=== PATIENT | male | born 1985 | race African-American/Black ===

== ENCOUNTER 2016-11-24 09:30 | Emergency (ER) | payer OTHER ==
[~2016-11-24] VITALS: Ht 185.4 cm; Wt 140.9 kg
[~2016-11-24 09:30] MED LIST: AMLODIPINE BESY10 MG PO; CLARITIN-D 121 EACH PO; NOHOMEMEDS; PHENERGAN-CODE120 ML PO; PREDNISONE20 MG PO; ROBITUSSIN AC,T10 ML PO; ZITHROMAX Z-PA250 MG PO
[2016-11-24] MEDS ORDERED: AUGMENTIN875 MG PO (11:13)
[2016-11-24] MEDS ORDERED: MEDROL DOSEPAK4 MG PO (11:13)
[2016-11-24] MEDS ORDERED: PROVENTIL HFA6.7 GM IH (11:13)
[2016-11-24] MEDS ORDERED: TESSALON PERLE100 MG PO (11:13)
[2016-11-24 11:19] VITALS: BP 158/99
== END 2016-11-24 11:21 | disposition home or self-care (01) ==
LOC: EME 09:30
DX: J06.9 Acute upper respiratory infection, unspecified (principal); J32.9 Chronic sinusitis, unspecified; I10 Essential (primary) hypertension
CPT/HCPCS: 71020; 94640; 99281; 99284; J7512

== ENCOUNTER 2017-04-26 17:56 | Emergency (ER) | payer OTHER ==
[~2017-04-26] VITALS: Ht 185.4 cm; Wt 137.1 kg
[~2017-04-26 17:56] MED LIST changes: +AUGMENTIN875 MG PO; +MEDROL DOSEPAK4 MG PO; +PROVENTIL HFA6.7 GM IH; +TESSALON PERLE100 MG PO
[2017-04-26 22:09] VITALS: BP 136/91
[2017-04-26] MEDS ORDERED: AUGMENTIN875 MG PO (22:10)
== END 2017-04-26 22:11 | disposition home or self-care (01) ==
LOC: EME 17:56
DX: H53.8 Other visual disturbances (principal); J01.90 Acute sinusitis, unspecified; I10 Essential (primary) hypertension
CPT/HCPCS: 70486; 99281; 99284

== ENCOUNTER 2017-04-30 13:52 | Inpatient (IN) | payer OTHER ==
[~2017-04-30] VITALS: Ht 185.4 cm; Wt 137.3 kg
[2017-04-30 16:02] LABS: HEMATOCRIT 43.6 % (38.0-50.0); MCHC 34.9 G/DL (30.0-36.0); MCV 77.4 FL (86-99); PLATELET COUNT 301 K/uL (156-360); RBC DIS.WIDTH-CV 12.5 % (11.8-14.6); RBC DIS.WIDTH-SD 35.3 % (39-53); RED BLOOD COUNT 5.63 M/uL (4.00-5.50); WHITE BLOOD COUNT 8.2 K/uL (4.1-10.2)
[2017-04-30 16:10] LABS: CHLORIDE 103 mEq/L (99-109); POTASSIUM 4.1 mEq/L (3.7-5.4); SODIUM 139 mEq/L (136-147)
[2017-04-30 16:12] LABS: GLUCOSE 80 mg/dL (70-99)
[2017-04-30 16:13] LABS: ANION GAP 10 MEQ/L (2-14)
[2017-04-30 16:16] LABS: GFR ESTIMATE (CALCULATED) > 59 mL/min/
[2017-04-30 16:17] LABS: UREA NITROGEN (BUN) 8 mg/dL (9-23)
[2017-04-30] MEDS ORDERED: LO-DOSE ASPIRIN81 M1 PO (18:22)
[2017-04-30] MEDS ORDERED: FLEXERIL10 MG PO (18:22)
[2017-04-30] MEDS ORDERED: MOTRIN800 MG PO (18:22)
[2017-04-30] MEDS ORDERED: [UNRECOGNIZED DRUG - OTHER] PO (18:26)
[2017-04-30 22:45] VITALS: BP 143/74
[2017-05-01 06:47] LABS: HEMATOCRIT 44.4 % (38.0-50.0); MCHC 35.6 G/DL (30.0-36.0); MCV 78.6 FL (86-99); MEAN PLAT.VOLUME 12.3 uM^3 (9.0-12.4); PLATELET COUNT 318 K/uL (156-360); RBC DIS.WIDTH-CV 12.9 % (11.8-14.6); RBC DIS.WIDTH-SD 36.5 % (39-53); RED BLOOD COUNT 5.65 M/uL (4.00-5.50); WHITE BLOOD COUNT 15.2 K/uL (4.1-10.2)
[2017-05-01 07:11] LABS: ALKALINE PHOSPHATASE 62 IU/L (3-129); ANION GAP 10 MEQ/L (2-14); CHLORIDE 98 MEQ/L (99-109); GFR ESTIMATE (CALCULATED) > 59 mL/min/; POTASSIUM 4.5 MEQ/L (3.7-5.4); SAMPLE HEMOLYSIS CHECK 0; SAMPLE ICTERIC CHECK 0; SAMPLE LIPEMIA CHECK 0; SODIUM 135 MEQ/L (136-147); TOTAL BILIRUBIN 0.7 MG/DL (0.0-1.0); UREA NITROGEN (BUN) 16 mg/dL (9-23)
[2017-05-01 07:14] LABS: GLUCOSE 223 mg/dL (70-99)
[2017-05-01 07:31] VITALS: BP 132/95
[2017-05-01 16:37] VITALS: BP 161/84
[2017-05-01 20:44] VITALS: BP 164/90
[2017-05-02 00:31] VITALS: BP 144/82
[2017-05-02 07:04] VITALS: BP 135/58
[2017-05-02 16:16] VITALS: BP 130/53
[2017-05-02 16:59] LABS: POINT-OF-CARE METER ID UU13113725
[2017-05-02 22:30] VITALS: BP 140/77
[2017-05-03 07:19] VITALS: BP 144/72
[2017-05-03 11:48] LABS: POINT-OF-CARE METER ID UU13113725
[2017-05-03 16:27] LABS: POINT-OF-CARE METER ID UU13113725
[2017-05-03 16:41] VITALS: BP 164/94
[2017-05-03 22:58] VITALS: BP 143/77
[2017-05-04 05:55] LABS: POINT-OF-CARE METER ID UU13113725
[2017-05-04 07:23] VITALS: BP 136/71
[2017-05-04 15:43] VITALS: BP 151/88
[2017-05-04 21:51] LABS: POINT-OF-CARE METER ID UU13113725
[2017-05-05 00:30] VITALS: BP 138/88
[2017-05-05 05:38] LABS: POINT-OF-CARE METER ID UU13113725
[2017-05-05 07:56] VITALS: BP 166/92
[2017-05-05 09:26] LABS: HEMATOCRIT 42.9 % (38.0-50.0); MCH 26.8 PG (29.0-34.0); MCHC 34.7 G/DL (30.0-36.0); MCV 77.3 FL (86-99); RBC DIS.WIDTH-CV 12.4 % (11.8-14.6); RBC DIS.WIDTH-SD 35.3 % (39-53); RED BLOOD COUNT 5.55 M/uL (4.00-5.50); WHITE BLOOD COUNT 21.4 K/uL (4.1-10.2)
[2017-05-05 09:52] LABS: PLAT.SUFFICIENCY ADEQUATE; PLATELET COUNT UNABLE TO REPORT K/uL (156-360)
[2017-05-05 11:51] LABS: POINT-OF-CARE METER ID UU13113725
[2017-05-05 16:04] VITALS: BP 140/78
[2017-05-05 16:28] LABS: POINT-OF-CARE METER ID UU13113725
[2017-05-05 18:11] LABS: APPEARANCE CLEAR/COLORLESS; RED CELL AREA COUNTED 8; RED CELL COUNT 544 /MM^3 (0-1); RED CELL DILUTION 1; WBC AREA COUNTED 18; WBC DILUTION 1; WHITE CELL COUNT 4 /MM^3 (0-5); WHITE CELL RAW COUNT 8
[2017-05-05 18:38] LABS: CSF TUBE NUMBER (RECHECK) TUBE #1; RED CELL DILUTION 1
[2017-05-05 18:39] LABS: CSF EOSINOPHILS ND % (0-25); MONONUCLEAR WBC'S ND % (50-90); POLYNUCLEAR WBC'S ND % (0-3); RED CELL AREA COUNTED 0.4; RED CELL COUNT (RECHECK) 1175 /MM^3 (0-1)
[2017-05-06 00:35] VITALS: BP 139/86
[2017-05-06 03:37] LABS: HEMATOCRIT 41.8 % (38.0-50.0); MCHC 35.2 G/DL (30.0-36.0); MCV 76.8 FL (86-99); RBC DIS.WIDTH-CV 12.2 % (11.8-14.6); RBC DIS.WIDTH-SD 33.3 % (39-53); RED BLOOD COUNT 5.44 M/uL (4.00-5.50); WHITE BLOOD COUNT 21.3 K/uL (4.1-10.2)
[2017-05-06 04:00] LABS: TROP-I INTERPRETATION NEGATIVE; TROPONIN-I 0.03 ng/mL (0.0-0.30)
[2017-05-06 04:56] LABS: MEAN PLAT.VOLUME 12.5 uM^3 (9.0-12.4); PLAT.SUFFICIENCY ADEQUATE; PLATELET COUNT 313 K/uL (156-360)
[2017-05-06 08:07] VITALS: BP 151/85
[2017-05-06 09:57] LABS: TROP-I INTERPRETATION NEGATIVE; TROPONIN-I 0.04 ng/mL (0.0-0.30)
[2017-05-06] MEDS ORDERED: PANTOPRAZOLE SO40 MG PO (10:30)
[2017-05-06] MEDS ORDERED: MAALOX ADVANCE355 ML PO (10:30)
[2017-05-06] MEDS ORDERED: PREDNISONE20 MG PO (10:30)
[2017-05-06 14:05] LABS: TROP-I INTERPRETATION NEGATIVE; TROPONIN-I 0.04 ng/mL (0.0-0.30)
[2017-05-07 22:10] LABS: IgG Index, CSF 0.45 index (<0.66); Synthesis Rate IgG, CSF -5.3 mg/24 h (-9.9-3.3)
== END 2017-05-06 16:07 | disposition home or self-care (01) | DRG 123 ==
LOC: EME 13:52 → EDOF 20:20 → 5EAST 20:20 → ENRESERV 20:21 → 5EAST 22:11 → ENPENDDIS 05-06 → 5EAST 05-06 16:07
PROVIDERS: Emergency Medicine; Hospitalist; Internal Medicine; Radiology Diagnostic Radiology
PROC: 009U3ZX Drainage of Spinal Canal, Percutaneous Approach, Diagnostic (ICD-10-PCS; principal; 2017-05-06)
DX: H46.9 Unspecified optic neuritis (principal); G35 Multiple sclerosis; I10 Essential (primary) hypertension; K21.9 Gastro-esophageal reflux disease without esophagitis; K64.9 Unspecified hemorrhoids; Z91.81 History of falling
CPT/HCPCS: 36415; 62270; 72156; 77002; 80048; 80053; 82164 90; 82945; 82948; 83873 90; 83916 90; 84157; 84484; 85025; 85027; 85549 90; 85651; 86038; 86777 90; 86780; 89051; 93005; 99202; 99281; 99285; J1815; J2930; J7050; J7512; S0028

== ENCOUNTER 2017-05-12 13:21 | Inpatient (IN) | payer OTHER ==
[~2017-05-12] VITALS: Ht 185.4 cm; Wt 128.0 kg
[~2017-05-12 13:21] MED LIST changes: +FLEXERIL10 MG PO; +LO-DOSE ASPIRIN81 M1 PO; +MAALOX ADVANCE355 ML PO; +MOTRIN800 MG PO; +PANTOPRAZOLE SO40 MG PO; +[UNRECOGNIZED DRUG - OTHER] PO
[2017-05-12 14:45] LABS: HEMATOCRIT 45.4 % (38.0-50.0); MCH 27.1 PG (29.0-34.0); MCV 77.5 FL (86-99); MEAN PLAT.VOLUME 12.6 uM^3 (9.0-12.4); PLATELET COUNT 326 K/uL (156-360); RBC DIS.WIDTH-CV 12.8 % (11.8-14.6); RBC DIS.WIDTH-SD 35.7 % (39-53); RED BLOOD COUNT 5.86 M/uL (4.00-5.50); WHITE BLOOD COUNT 19.2 K/uL (4.1-10.2)
[2017-05-12 14:53] LABS: CHLORIDE 105 mEq/L (99-109); POTASSIUM 4.1 mEq/L (3.7-5.4); SODIUM 140 mEq/L (136-147)
[2017-05-12 14:55] LABS: GLUCOSE 117 mg/dL (70-99)
[2017-05-12 14:56] LABS: ANION GAP 11 MEQ/L (2-14)
[2017-05-12 14:57] LABS: TOTAL BILIRUBIN 1.2 mg/dL (0.0-1.0)
[2017-05-12 14:58] LABS: SERUM ETHYL ALCOHOL < 10 mg/dL
[2017-05-12 14:59] LABS: ALKALINE PHOSPHATASE 70 IU/L (3-129); GFR ESTIMATE (CALCULATED) > 59 mL/min/
[2017-05-12 15:00] LABS: UREA NITROGEN (BUN) 20 mg/dL (9-23)
[2017-05-13 03:00] VITALS: BP 155/100
[2017-05-13 04:59] LABS: ADD MIUA? YES; BILIRUBIN NEGATIVE; BLOOD SMALL; COLOR YELLOW ((YELLOW)); GLUCOSE (STRIP) NEGATIVE; KETONES 20; LEUKOCYTES SMALL; NITRITE NEGATIVE; PROTEIN (STRIP) NEGATIVE; SPECIFIC GRAVITY 1.015 (1.000-1.030); UROBILINOGEN 0.2 MG/DL (0.2-1.0)
[2017-05-13 05:10] LABS: BACTERIA RARE /HPF; EPITHELIAL CELLS RARE /HPF; MUCUS TRACE /LPF; RED BLOOD CELLS 0-5 /HPF (0-5); UCUL ADDED? YES; WHITE BLOOD CELLS 20-30 /HPF (0-5)
[2017-05-13 07:00] LABS: HEMATOCRIT 43.8 % (38.0-50.0); MCH 27.8 PG (29.0-34.0); MCHC 35.4 G/DL (30.0-36.0); MCV 78.6 FL (86-99); RBC DIS.WIDTH-CV 13.2 % (11.8-14.6); RBC DIS.WIDTH-SD 37.5 % (39-53); RED BLOOD COUNT 5.57 M/uL (4.00-5.50)
[2017-05-13 07:25] LABS: ANION GAP 12 MEQ/L (2-14); CHLORIDE 100 MEQ/L (99-109); GFR ESTIMATE (CALCULATED) > 59 mL/min/; GLUCOSE 109 mg/dL (70-99); POTASSIUM 3.9 MEQ/L (3.7-5.4); SAMPLE HEMOLYSIS CHECK 0; SAMPLE ICTERIC CHECK 0; SAMPLE LIPEMIA CHECK 0; SODIUM 138 MEQ/L (136-147); UREA NITROGEN (BUN) 17 mg/dL (9-23)
[2017-05-13 08:13] LABS: MEAN PLAT.VOLUME 12.8 uM^3 (9.0-12.4); PLAT.SUFFICIENCY ADEQUATE; PLATELET COUNT 322 K/uL (156-360)
[2017-05-13 08:15] VITALS: BP 166/98
[2017-05-13 11:46] VITALS: BP 168/92
[2017-05-13 16:49] LABS: AMPHETAMINES QUANT VALUE 0 NG/ML; BARBITUATES QUANT VALUE 0 NG/ML; BENZODIAZEPINES QUANT VALUE 0 NG/ML; BENZODIAZEPINES, URINE SCREEN Negative (200 ng/mL); MARIJUANA QUANT VALUE 0 NG/ML; OPIATES QUANTITATIVE VALUE 0 NG/ML; PHENCYCLIDINE QUANT VALUE 0 NG/ML
[2017-05-14 08:00] VITALS: BP 148/98
[2017-05-14 16:12] VITALS: BP 177/99
[2017-05-14 17:08] LABS: AMPHETAMINES QUANT VALUE 0 NG/ML; BARBITUATES QUANT VALUE 0 NG/ML; BENZODIAZEPINES QUANT VALUE 0 NG/ML; BENZODIAZEPINES, URINE SCREEN Negative (200 ng/mL); MARIJUANA QUANT VALUE 0 NG/ML; OPIATES QUANTITATIVE VALUE 0 NG/ML; PHENCYCLIDINE QUANT VALUE 0 NG/ML
== END 2017-05-14 19:53 | DRG 948 ==
LOC: EME 13:21 → EDOF 16:29 → 5SOUTH 16:29 → ENRESERV 16:34 → 5SOUTH 17:39
PROVIDERS: Emergency Medicine; Hospitalist; Internal Medicine; Psychiatry & Neurology Psychiatry
DX: R41.0 Disorientation, unspecified (principal); T38.0X5A Adverse effect of glucocorticoids and synthetic analogues, initial encounter; F20.9 Schizophrenia, unspecified; J06.9 Acute upper respiratory infection, unspecified; H46.9 Unspecified optic neuritis; I10 Essential (primary) hypertension; R00.0 Tachycardia, unspecified; R47.81 Slurred speech; R45.1 Restlessness and agitation; Z82.3 Family history of stroke
CPT/HCPCS: 70551; 80048; 80053; 80306 90; 81003; 82607; 82948; 84443; 85027; 87086; 90839; 93005; 94799; 99281; 99284; G0480; J1200; J1630; J1644; J2060; J7030

== ENCOUNTER 2017-05-14 18:13 | Inpatient (IN) | payer OTHER ==
[~2017-05-14] VITALS: Ht 185.4 cm; Wt 128.0 kg
[2017-05-14 20:06] VITALS: BP 158/120
[2017-05-15 17:45] LABS: POINT-OF-CARE METER ID UU14188576
[2017-05-15 20:46] LABS: POINT-OF-CARE METER ID UU14188576
[2017-05-16 06:22] LABS: POINT-OF-CARE METER ID UU14188576
[2017-05-16 07:37] VITALS: BP 145/84
[2017-05-16 08:15] LABS: ALKALINE PHOSPHATASE 61 IU/L (3-129); ANION GAP 13 MEQ/L (2-14); CHLORIDE 99 MEQ/L (99-109); GFR ESTIMATE (CALCULATED) > 59 mL/min/; GLUCOSE 89 mg/dL (70-99); IRON 201 MCG/DL (35-150); POTASSIUM 4.2 MEQ/L (3.7-5.4); SAMPLE HEMOLYSIS CHECK 0; SAMPLE ICTERIC CHECK 1; SAMPLE LIPEMIA CHECK 0; SODIUM 135 MEQ/L (136-147); TOTAL BILIRUBIN 2.8 MG/DL (0.0-1.0); UREA NITROGEN (BUN) 20 mg/dL (9-23)
[2017-05-16 09:32] LABS: Estimated Average Glucose 103 mg/dL (70-123); HEMOGLOBIN A1c (GLYCOHEMOGLOB) 5.2 % HGB (Below 5.7)
[2017-05-16 11:56] LABS: POINT-OF-CARE METER ID UU14188576; POINT-OF-CARE USER ID BHSCRC
[2017-05-16 14:38] LABS: FERRITIN 826 NG/ML (22-322)
[2017-05-16 15:33] VITALS: BP 152/92
[2017-05-16 17:06] LABS: POINT-OF-CARE METER ID UU14188576; POINT-OF-CARE USER ID BHSCRC
[2017-05-16 21:08] LABS: POINT-OF-CARE METER ID UU14188576; POINT-OF-CARE USER ID BHSMEW
[2017-05-17 06:23] LABS: POINT-OF-CARE METER ID UU14188576
[2017-05-17 11:36] LABS: HBSG INDEX 0.18
[2017-05-17 11:37] LABS: HPCA INDEX 0.13
[2017-05-17 11:38] LABS: ANTI-HEPATITIS A VIRUS (IGM) Nonreactive; ANTI-HEPATITIS B CORE (IGM) Nonreactive; HAV INDEX 0.13; HBC IgM INDEX 0.07
[2017-05-17 12:29] LABS: POINT-OF-CARE METER ID UU14188576; POINT-OF-CARE USER ID BHSMRC
[2017-05-18 06:22] LABS: POINT-OF-CARE METER ID UU14188576; POINT-OF-CARE USER ID ENVTLS63
[2017-05-18 08:05] VITALS: BP 150/95
[2017-05-18 12:19] LABS: POINT-OF-CARE METER ID UU14188576
[2017-05-18 15:39] VITALS: BP 138/83
[2017-05-18 16:50] LABS: POINT-OF-CARE METER ID UU14188576
[2017-05-18 20:46] LABS: POINT-OF-CARE METER ID UU14188576
[2017-05-20 06:15] LABS: POINT-OF-CARE METER ID UU14188576; POINT-OF-CARE USER ID BHSSMG
[2017-05-20 07:40] VITALS: BP 142/74
[2017-05-20 10:56] LABS: CHLORIDE 101 mEq/L (99-109); POTASSIUM 4.5 mEq/L (3.7-5.4); SODIUM 140 mEq/L (136-147)
[2017-05-20 10:58] LABS: GLUCOSE 104 mg/dL (70-99)
[2017-05-20 10:59] LABS: ANION GAP 15 MEQ/L (2-14)
[2017-05-20 11:01] LABS: GFR ESTIMATE (CALCULATED) > 59 mL/min/
[2017-05-20 11:02] LABS: UREA NITROGEN (BUN) 17 mg/dL (9-23)
[2017-05-20 15:51] VITALS: BP 148/99
[2017-05-20 16:44] LABS: POINT-OF-CARE METER ID UU14188576; POINT-OF-CARE USER ID BHSMEW
[2017-05-21 06:10] LABS: POINT-OF-CARE METER ID UU14188576; POINT-OF-CARE USER ID ENVTLS63
[2017-05-21 07:44] VITALS: BP 123/77
[2017-05-21 12:19] LABS: POINT-OF-CARE METER ID UU14188576
[2017-05-21 13:20] LABS: ADD MIUA? YES; BILIRUBIN SMALL; BLOOD SMALL; COLOR AMBER ((YELLOW)); GLUCOSE (STRIP) NEGATIVE; KETONES 20; LEUKOCYTES MODERATE; NITRITE NEGATIVE; PROTEIN (STRIP) 30; SPECIFIC GRAVITY 1.023 (1.000-1.030)
[2017-05-21 14:21] LABS: BACTERIA 1+ /HPF; EPITHELIAL CELLS RARE /HPF; MUCUS 3+ /LPF; RED BLOOD CELLS 15-20 /HPF (0-5); WHITE BLOOD CELLS TNTC /HPF (0-5)
[2017-05-21 16:50] VITALS: BP 130/99
[2017-05-21 16:57] LABS: POINT-OF-CARE METER ID UU14188576; POINT-OF-CARE USER ID BHSMEW
[2017-05-22 06:23] LABS: POINT-OF-CARE METER ID UU14188576
[2017-05-22] MEDS ORDERED: CLONAZEPAM1 MG PO (11:50)
[2017-05-22 12:05] LABS: POINT-OF-CARE METER ID UU14188576
[2017-05-22 15:43] VITALS: BP 119/70
== END 2017-05-22 16:45 | DRG 885 ==
LOC: ENRESERV 18:13 → 1WEST 18:13
PROVIDERS: Internal Medicine; Psychiatry & Neurology Psychiatry
DX: F29 Unspecified psychosis not due to a substance or known physiological condition (principal); F06.1 Catatonic disorder due to known physiological condition; R47.01 Aphasia; E86.0 Dehydration; R73.9 Hyperglycemia, unspecified; H46.9 Unspecified optic neuritis; D72.829 Elevated white blood cell count, unspecified; T38.0X5A Adverse effect of glucocorticoids and synthetic analogues, initial encounter; I10 Essential (primary) hypertension; E66.9 Obesity, unspecified; Z68.37 Body mass index [BMI] 37.0-37.9, adult
CPT/HCPCS: 80048; 80053; 80074; 81003; 82140; 82390; 82728; 82948; 83036; 83540; 84450; 84460; 84466; 85610; 99202; J1630; J1815; J2060

== ENCOUNTER 2017-05-22 13:30 | Inpatient (IN) | payer OTHER ==
[~2017-05-22] VITALS: Ht 185.4 cm; Wt 121.5 kg
[~2017-05-22 13:30] MED LIST changes: +CLONAZEPAM1 MG PO
[2017-05-22 17:38] VITALS: BP 150/95
[2017-05-22 23:44] VITALS: BP 121/70
[2017-05-23 07:46] LABS: HEMATOCRIT 35.2 % (38.0-50.0); MCH 26.9 PG (29.0-34.0); MCHC 33.5 G/DL (30.0-36.0); MCV 80.4 FL (86-99); RBC DIS.WIDTH-CV 12.4 % (11.8-14.6); RBC DIS.WIDTH-SD 36.6 % (39-53)
[2017-05-23 07:49] LABS: RED BLOOD COUNT 4.38 M/uL (4.00-5.50)
[2017-05-23 07:52] LABS: ALKALINE PHOSPHATASE 56 IU/L (3-129); ANION GAP 6 MEQ/L (2-14); CHLORIDE 99 MEQ/L (99-109); GFR ESTIMATE (CALCULATED) > 59 mL/min/; GLUCOSE 96 mg/dL (70-99); POTASSIUM 4.2 MEQ/L (3.7-5.4); SAMPLE HEMOLYSIS CHECK 2; SAMPLE ICTERIC CHECK 0; SAMPLE LIPEMIA CHECK 0; SODIUM 135 MEQ/L (136-147); UREA NITROGEN (BUN) 22 mg/dL (9-23)
[2017-05-23 07:58] VITALS: BP 137/82
[2017-05-23 08:24] LABS: DIRECT BILIRUBIN 0.9 mg/dL (0.0-0.3); HDL CHOLESTEROL 26 MG/DL (Desirable>=40); LDL CHOLESTEROL 94 mg/dL (Desirable<100); NON-HDL CHOLESTEROL 111 mg/dL (Desirable<160); TOTAL CHOLESTEROL 137 mg/dL (Desirable<200); TRIGLYCERIDES 87 MG/DL (Normal: <150)
[2017-05-23 08:35] LABS: IRON 66 MCG/DL (35-150)
[2017-05-23 08:37] LABS: MEAN PLAT.VOLUME 12.8 uM^3 (9.0-12.4); PLAT.SUFFICIENCY ADEQUATE
[2017-05-23 08:40] LABS: PLATELET COUNT 184 K/uL (156-360)
[2017-05-23 09:51] LABS: ADD MIUA? YES; BILIRUBIN NEGATIVE; BLOOD LARGE; COLOR AMBER ((YELLOW)); GLUCOSE (STRIP) NEGATIVE; KETONES 5; LEUKOCYTES MODERATE; NITRITE NEGATIVE; PROTEIN (STRIP) NEGATIVE; SPECIFIC GRAVITY 1.026 (1.000-1.030)
[2017-05-23 10:21] LABS: EPITHELIAL CELLS RARE /HPF; RED BLOOD CELLS TNTC /HPF (0-5); UCUL ADDED? YES; WHITE BLOOD CELLS 40-50 /HPF (0-5)
[2017-05-23 10:40] LABS: BACTERIA 1+ /HPF; CASTS PRESENT /LPF; MUCUS 2+ /LPF
[2017-05-23 10:41] LABS: CRYSTALS NONE SEEN; HYALINE CASTS 0-5 /LPF
[2017-05-23 10:50] LABS: FERRITIN 832 NG/ML (22-322)
[2017-05-23 16:06] VITALS: BP 140/97
[2017-05-23 17:01] LABS: INTER. NORMALIZED RATIO 1.3; PROTHROMBIN TIME 14.3 SEC (10.2-12.9)
[2017-05-23 17:04] LABS: PTT 27.3 SEC (25-37)
[2017-05-23 21:44] LABS: HEMATOCRIT 35.3 % (38.0-50.0); MCV 82.3 FL (86-99)
[2017-05-23 22:42] VITALS: BP 136/84
[2017-05-24 07:39] LABS: HEMATOCRIT 35.2 % (38.0-50.0); MCH 27.8 PG (29.0-34.0); MCHC 34.4 G/DL (30.0-36.0); MCV 80.7 FL (86-99); RBC DIS.WIDTH-CV 12.3 % (11.8-14.6); RBC DIS.WIDTH-SD 36.7 % (39-53); RED BLOOD COUNT 4.36 M/uL (4.00-5.50); WHITE BLOOD COUNT 6.3 K/uL (4.1-10.2)
[2017-05-24 07:57] VITALS: BP 163/92
[2017-05-24 08:03] LABS: ALKALINE PHOSPHATASE 62 IU/L (3-129); ANION GAP 8 MEQ/L (2-14); CHLORIDE 102 MEQ/L (99-109); GFR ESTIMATE (CALCULATED) > 59 mL/min/; GLUCOSE 106 mg/dL (70-99); POTASSIUM 4.2 MEQ/L (3.7-5.4); SAMPLE HEMOLYSIS CHECK 0; SAMPLE ICTERIC CHECK 1; SAMPLE LIPEMIA CHECK 0; SODIUM 137 MEQ/L (136-147); TOTAL BILIRUBIN 3.3 MG/DL (0.0-1.0); UREA NITROGEN (BUN) 15 mg/dL (9-23)
[2017-05-24 08:39] LABS: PLAT.SUFFICIENCY ADEQUATE; PLATELET CLUMPS PRESENT - PLATELET COUNT APPEARS ADQ.; PLATELET COUNT UNABLE TO REPORT K/uL (156-360)
[2017-05-24 16:24] VITALS: BP 162/95
[2017-05-24 20:11] LABS: HEMATOCRIT 36.7 % (38.0-50.0); MCV 81.7 FL (86-99)
[2017-05-24 22:27] VITALS: BP 147/89
[2017-05-25 08:02] VITALS: BP 137/77
[2017-05-25 08:58] LABS: HEMATOCRIT 34.6 % (38.0-50.0); MCH 26.8 PG (29.0-34.0); MCHC 32.7 G/DL (30.0-36.0); MCV 82.2 FL (86-99); MEAN PLAT.VOLUME 12.6 uM^3 (9.0-12.4); RBC DIS.WIDTH-CV 12.5 % (11.8-14.6); RBC DIS.WIDTH-SD 37.5 % (39-53); RED BLOOD COUNT 4.21 M/uL (4.00-5.50); WHITE BLOOD COUNT 6.3 K/uL (4.1-10.2)
[2017-05-25 09:05] LABS: INTER. NORMALIZED RATIO 1.3; PROTHROMBIN TIME 14.3 SEC (10.2-12.9)
[2017-05-25 09:17] LABS: ALKALINE PHOSPHATASE 65 IU/L (3-129); ANION GAP 7 MEQ/L (2-14); CHLORIDE 103 MEQ/L (99-109); DIRECT BILIRUBIN 0.8 mg/dL (0.0-0.3); GFR ESTIMATE (CALCULATED) > 59 mL/min/; POTASSIUM 4.4 MEQ/L (3.7-5.4); SAMPLE HEMOLYSIS CHECK 0; SAMPLE ICTERIC CHECK 0; SAMPLE LIPEMIA CHECK 0; SODIUM 138 MEQ/L (136-147); UREA NITROGEN (BUN) 12 mg/dL (9-23)
[2017-05-25 09:23] LABS: PLATELET COUNT 187 K/uL (156-360)
[2017-05-25 09:29] LABS: GLUCOSE 76 mg/dL (70-99); TOTAL BILIRUBIN 1.9 MG/DL (0.0-1.0)
[2017-05-25 09:54] LABS: FERRITIN 676 NG/ML (22-322); LACTATE DEHYDROGENASE 231 IU/L (20-246)
[2017-05-25 10:40] LABS: ANTI-EPSTEIN-BARR NUCLEAR AG POSITIVE; ANTI-EPSTEIN-BARR VCA IGG POSITIVE; ANTI-EPSTEIN-BARR VCA IGM NEGATIVE
[2017-05-25 15:50] VITALS: BP 135/77
[2017-05-26 00:02] VITALS: BP 162/77
[2017-05-26 06:57] VITALS: BP 131/82
[2017-05-26 16:37] LABS: ANION GAP 17 MEQ/L (2-14); CHLORIDE 102 MEQ/L (99-109); POTASSIUM 4.7 MEQ/L (3.7-5.4); SAMPLE HEMOLYSIS CHECK 0; SAMPLE ICTERIC CHECK 0; SAMPLE LIPEMIA CHECK 0; SODIUM 138 MEQ/L (136-147)
[2017-05-26 16:44] LABS: ALKALINE PHOSPHATASE 85 IU/L (3-129); GFR ESTIMATE (CALCULATED) > 59 mL/min/; GLUCOSE 80 mg/dL (70-99); UREA NITROGEN (BUN) 15 mg/dL (9-23)
[2017-05-27 04:39] VITALS: BP 125/63
[2017-05-27 08:20] VITALS: BP 131/87
[2017-05-27] MEDS ORDERED: ARIPIPRAZOLE10 MG PO (09:27)
[2017-05-27] MEDS ORDERED: Chronulac,Cephulac,E PO (09:27)
== END 2017-05-27 16:18 | DRG 884 ==
LOC: 5EAST 13:30 → ENRESERV 13:31 → 5EAST 13:45 → ENRESERV 14:03 → 5EAST 14:14 → ENPENDDIS 05-27 → 5EAST 05-27 16:18
PROVIDERS: Hospitalist; Internal Medicine; Internal Medicine Gastroenterology
DX: F06.1 Catatonic disorder due to known physiological condition (principal); G92 Toxic encephalopathy; H46.9 Unspecified optic neuritis; N39.0 Urinary tract infection, site not specified; E72.20 Disorder of urea cycle metabolism, unspecified; F23 Brief psychotic disorder; F94.0 Selective mutism; T38.0X5A Adverse effect of glucocorticoids and synthetic analogues, initial encounter; H54.61 Unqualified visual loss, right eye, normal vision left eye; I10 Essential (primary) hypertension; K76.0 Fatty (change of) liver, not elsewhere classified; F29 Unspecified psychosis not due to a substance or known physiological condition; K80.20 Calculus of gallbladder without cholecystitis without obstruction; R31.0 Gross hematuria; D50.9 Iron deficiency anemia, unspecified; E80.6 Other disorders of bilirubin metabolism; E66.9 Obesity, unspecified; Z68.35 Body mass index [BMI] 35.0-35.9, adult; Z91.14 Patient's other noncompliance with medication regimen; R45.1 Restlessness and agitation
CPT/HCPCS: 74181; 76705; 80053; 80061; 81003; 81256 90; 82140; 82248; 82728; 83540; 83615; 84120 90; 84466; 85014; 85018; 85027; 85610; 85730; 86664; 86665; 87086; 99202; J0696; J1170; J1200; J1630; J2060; J7050

== ENCOUNTER 2017-05-27 14:10 | Inpatient (IN) | payer OTHER ==
[~2017-05-27] VITALS: Ht 190.5 cm; Wt 122.2 kg
[~2017-05-27 14:10] MED LIST changes: +ARIPIPRAZOLE10 MG PO; +Chronulac,Cephulac,E PO
[2017-05-27 16:33] VITALS: BP 154/91
[2017-05-27 22:55] VITALS: BP 154/91
[2017-05-28 07:58] VITALS: BP 147/91
[2017-05-28 15:52] VITALS: BP 140/64
[2017-05-29 07:55] VITALS: BP 141/80
[2017-05-29 15:21] VITALS: BP 137/85
[2017-05-30 08:02] VITALS: BP 142/87
[2017-05-30 15:55] VITALS: BP 114/70
[2017-05-31 07:34] VITALS: BP 166/76
[2017-05-31 15:54] VITALS: BP 133/79
[2017-06-01 07:47] VITALS: BP 135/72
[2017-06-01] MEDS ORDERED: CONSTULOSE10 GM/15 M PO (14:51)
[2017-06-01 15:14] VITALS: BP 124/70
[2017-06-01 15:26] LABS: ALKALINE PHOSPHATASE 69 IU/L (3-129); ANION GAP 9 MEQ/L (2-14); CHLORIDE 103 MEQ/L (99-109); GFR ESTIMATE (CALCULATED) > 59 mL/min/; GLUCOSE 94 mg/dL (70-99); POTASSIUM 3.8 MEQ/L (3.7-5.4); SAMPLE HEMOLYSIS CHECK 0; SAMPLE ICTERIC CHECK 0; SAMPLE LIPEMIA CHECK 0; SODIUM 139 MEQ/L (136-147); UREA NITROGEN (BUN) 7 mg/dL (9-23)
[2017-06-01 15:27] LABS: TOTAL BILIRUBIN 0.9 MG/DL (0.0-1.0)
[2017-06-02 07:55] VITALS: BP 136/78
[2017-06-02 15:39] VITALS: BP 126/72
[2017-06-02 22:20] LABS: ADD MIUA? YES; BILIRUBIN NEGATIVE; BLOOD NEGATIVE; COLOR AMBER ((YELLOW)); GLUCOSE (STRIP) NEGATIVE; KETONES NEGATIVE; LEUKOCYTES MODERATE; NITRITE NEGATIVE; PROTEIN (STRIP) 30; SPECIFIC GRAVITY 1.021 (1.000-1.030)
[2017-06-02 22:39] LABS: EPITHELIAL CELLS RARE /HPF; RED BLOOD CELLS 0-5 /HPF (0-5); WHITE BLOOD CELLS TNTC /HPF (0-5)
[2017-06-02 22:40] LABS: BACTERIA 2+ /HPF; MUCUS 4+ /LPF
[2017-06-03 07:55] VITALS: BP 132/75
[2017-06-03 16:00] VITALS: BP 130/80
[2017-06-04 08:18] VITALS: BP 125/82
[2017-06-04 16:16] VITALS: BP 116/70
[2017-06-05 09:32] VITALS: BP 135/79
[2017-06-05 15:17] VITALS: BP 134/77
[2017-06-06 08:34] VITALS: BP 124/66
[2017-06-06 15:55] VITALS: BP 108/58
[2017-06-07 07:52] VITALS: BP 135/88
[2017-06-07 15:32] VITALS: BP 137/73
[2017-06-08 07:59] VITALS: BP 131/68
[2017-06-08 16:28] VITALS: BP 145/90
[2017-06-09 07:54] VITALS: BP 130/91
[2017-06-09 14:52] LABS: TROP-I INTERPRETATION NEGATIVE; TROPONIN-I 0.09 ng/mL (0.0-0.30)
[2017-06-09 14:59] LABS: ANION GAP 8 MEQ/L (2-14); BASOPHIL COUNT 0.1 K/uL (0-0.1); CHLORIDE 100 MEQ/L (99-109); EOSINOPHIL (%) 0.2 % (0-5); HEMATOCRIT 41.3 % (38.0-50.0); IMMATURE GRANULOCYTE (%) 0.4 % (0.0-0.7); INSTRUMENT ABS NEUTROPHIL CT 7.7 K/uL; LYMPHOCYTE COUNT 1.8 K/uL (1.0-2.8); MCH 26.8 PG (29.0-34.0); MCHC 32.9 G/DL (30.0-36.0); MCV 81.3 FL (86-99); MEAN PLAT.VOLUME 12.1 uM^3 (9.0-12.4); MONOCYTE (%) 7.7 % (3-12); MONOCYTE COUNT 0.8 K/uL (0-0.8); NEUTROPHIL (%) 74.1 % (45-76); NEUTROPHIL COUNT 7.7 K/uL (1.8-6.4); POTASSIUM 4.9 MEQ/L (3.7-5.4); RBC DIS.WIDTH-CV 13.3 % (11.8-14.6); RBC DIS.WIDTH-SD 39.6 % (39-53); SAMPLE HEMOLYSIS CHECK 0; SAMPLE ICTERIC CHECK 0; SAMPLE LIPEMIA CHECK 0; SODIUM 138 MEQ/L (136-147); TOTAL BILIRUBIN 0.9 MG/DL (0.0-1.0); WHITE BLOOD COUNT 10.4 K/uL (4.1-10.2)
[2017-06-09 15:01] LABS: RED BLOOD COUNT 5.08 M/uL (4.00-5.50)
[2017-06-09 15:02] LABS: PLATELET COUNT 365 K/uL (156-360)
[2017-06-09 15:05] LABS: ALKALINE PHOSPHATASE 74 IU/L (3-129); GFR ESTIMATE (CALCULATED) > 59 mL/min/; GLUCOSE 103 mg/dL (70-99); UREA NITROGEN (BUN) 8 mg/dL (9-23)
[2017-06-09 15:33] VITALS: BP 132/83
[2017-06-09 15:34] LABS: ADD MIUA? YES; BILIRUBIN NEGATIVE; BLOOD MODERATE; COLOR YELLOW ((YELLOW)); GLUCOSE (STRIP) NEGATIVE; KETONES NEGATIVE; LEUKOCYTES MODERATE; NITRITE NEGATIVE; PROTEIN (STRIP) NEGATIVE; SPECIFIC GRAVITY 1.011 (1.000-1.030)
[2017-06-09 15:41] LABS: PROLACTIN 1.4 NG/ML
[2017-06-09 15:45] LABS: BACTERIA RARE /HPF; EPITHELIAL CELLS RARE /HPF; MUCUS 1+ /LPF; UCUL ADDED? YES; WHITE BLOOD CELLS TNTC /HPF (0-5); WHITE BLOOD CELLS CLUMP FEW /HPF (0-5)
[2017-06-10] MEDS ORDERED: BUPROPION HCL150 M2 PO (10:01)
[2017-06-10 13:30] LABS: CHLAMYDIA TRACHOMATIS NEGATIVE; NEISSERIA GONORRHOEAE NEGATIVE
[2017-06-11] MEDS ORDERED: EFFEXOR XR37.5 MG PO (17:16)
== END 2017-06-10 10:13 | DRG 885 ==
LOC: 1WEST 14:10 → ENRESERV 14:11 → 1WEST 16:22
PROVIDERS: Hospitalist; Psychiatry & Neurology Psychiatry
DX: F22 Delusional disorders (principal); H33.20 Serous retinal detachment, unspecified eye; Z68.35 Body mass index [BMI] 35.0-35.9, adult
CPT/HCPCS: 70450; 80053; 81003; 84146; 84484; 85025; 86255 90; 87086; 87491; 87591; 89190; 93005; 94799; 97150 GO; 97166 GO

== ENCOUNTER 2017-06-10 10:19 | Inpatient (IN) | payer OTHER ==
[~2017-06-10] VITALS: Ht 190.5 cm; Wt 119.4 kg
[~2017-06-10 10:19] MED LIST changes: +BUPROPION HCL150 M2 PO; +CONSTULOSE10 GM/15 M PO
[2017-06-10 15:09] LABS: HEMATOCRIT 41.8 % (38.0-50.0); MCH 26.9 PG (29.0-34.0); MCHC 33.5 G/DL (30.0-36.0); MCV 80.2 FL (86-99); RBC DIS.WIDTH-CV 13.3 % (11.8-14.6); RBC DIS.WIDTH-SD 38.6 % (39-53); RED BLOOD COUNT 5.21 M/uL (4.00-5.50); WHITE BLOOD COUNT 11.3 K/uL (4.1-10.2)
[2017-06-10 15:36] LABS: ALKALINE PHOSPHATASE 74 IU/L (3-129); ANION GAP 10 MEQ/L (2-14); CHLORIDE 101 MEQ/L (99-109); GFR ESTIMATE (CALCULATED) > 59 mL/min/; GLUCOSE 87 mg/dL (70-99); MEAN PLAT.VOLUME 11.2 uM^3 (9.0-12.4); PLAT.SUFFICIENCY ADEQUATE; PLATELET COUNT 352 K/uL (156-360); SAMPLE HEMOLYSIS CHECK 0; SAMPLE ICTERIC CHECK 0; SAMPLE LIPEMIA CHECK 0; SODIUM 139 MEQ/L (136-147); UREA NITROGEN (BUN) 8 mg/dL (9-23)
[2017-06-10 15:41] LABS: POTASSIUM 3.9 MEQ/L (3.7-5.4)
[2017-06-10 16:49] VITALS: BP 141/95
[2017-06-10 19:55] VITALS: BP 136/93
[2017-06-10 23:31] VITALS: BP 143/88
[2017-06-11 03:44] VITALS: BP 141/93
[2017-06-11 05:17] LABS: HEMATOCRIT 37.8 % (38.0-50.0); MCH 27.9 PG (29.0-34.0); MCHC 34.9 G/DL (30.0-36.0); MCV 79.9 FL (86-99); MEAN PLAT.VOLUME 11.3 uM^3 (9.0-12.4); PLATELET COUNT 340 K/uL (156-360); RBC DIS.WIDTH-CV 13.2 % (11.8-14.6); RBC DIS.WIDTH-SD 37.9 % (39-53); RED BLOOD COUNT 4.73 M/uL (4.00-5.50); WHITE BLOOD COUNT 10.5 K/uL (4.1-10.2)
[2017-06-11 05:51] LABS: ANION GAP 12 MEQ/L (2-14); CHLORIDE 101 MEQ/L (99-109); GFR ESTIMATE (CALCULATED) > 59 mL/min/; GLUCOSE 100 mg/dL (70-99); POTASSIUM 4.1 MEQ/L (3.7-5.4); SAMPLE HEMOLYSIS CHECK 0; SAMPLE ICTERIC CHECK 0; SAMPLE LIPEMIA CHECK 0; SODIUM 140 MEQ/L (136-147); UREA NITROGEN (BUN) 6 mg/dL (9-23)
[2017-06-11 07:41] VITALS: BP 145/94
[2017-06-11 14:56] LABS: HIV INDEX 0.12; HIV-1/2 AB/AG COMBO Nonreactive
[2017-06-11] MEDS ORDERED: EFFEXOR XR37.5 MG PO (17:16)
[2017-06-12] MEDS ORDERED: FLUPHENAZINE HCL1 MG PO (16:01)
[2017-06-12] MEDS ORDERED: ARIPIPRAZOLE10 MG PO (16:01)
[2017-06-15 11:10] LABS: HIV RNA QUANT LOG10 RESULT < 1.30 Log(10) (<1.30); HIV RNA QUANT VIRAL LOAD < 20 copy/mL (<20)
== END 2017-06-11 16:30 | DRG 885 ==
LOC: 4EAST 10:19 → ENRESERV 10:20 → 4EAST 10:32 → ENPENDDIS 06-11 → 4EAST 06-11 16:30
PROVIDERS: Internal Medicine; Psychiatry & Neurology Psychiatry
DX: F32.3 Major depressive disorder, single episode, severe with psychotic features (principal); R94.5 Abnormal results of liver function studies; D72.829 Elevated white blood cell count, unspecified; R74.8 Abnormal levels of other serum enzymes; F06.1 Catatonic disorder due to known physiological condition; J45.909 Unspecified asthma, uncomplicated; I10 Essential (primary) hypertension; Z91.81 History of falling
CPT/HCPCS: 76770; 80048; 80053; 81003; 82140; 82525 90; 85027; 86703; 86705; 86803; 87040; 87340; 87536; 95819

== ENCOUNTER 2017-06-11 15:35 | Inpatient (IN) | payer OTHER ==
[2017-06-11 16:39] VITALS: BP 175/96
[2017-06-11 16:59] VITALS: BP 175/96
[2017-06-11] MEDS ORDERED: EFFEXOR XR37.5 MG PO (17:16)
[2017-06-12 11:39] VITALS: BP 136/102
[2017-06-12 14:57] VITALS: BP 164/103
[2017-06-12 15:59] LABS: CHLORIDE 101 mEq/L (99-109); POTASSIUM 4.3 mEq/L (3.7-5.4); SODIUM 138 mEq/L (136-147)
[2017-06-12 16:01] LABS: GLUCOSE 125 mg/dL (70-99)
[2017-06-12] MEDS ORDERED: ARIPIPRAZOLE10 MG PO (16:01)
[2017-06-12] MEDS ORDERED: FLUPHENAZINE HCL1 MG PO (16:01)
[2017-06-12 16:02] LABS: ANION GAP 24 MEQ/L (2-14)
[2017-06-12 16:03] LABS: TOTAL BILIRUBIN 0.8 mg/dL (0.0-1.0)
[2017-06-12 16:05] LABS: ALKALINE PHOSPHATASE 81 IU/L (3-129); GFR ESTIMATE (CALCULATED) > 59 mL/min/
[2017-06-12 16:06] LABS: UREA NITROGEN (BUN) 9 mg/dL (9-23)
[2017-06-12 16:14] LABS: TROP-I INTERPRETATION NEGATIVE; TROPONIN-I 0.07 ng/mL (0.0-0.30)
[2017-06-12 16:19] LABS: POINT-OF-CARE METER ID UU14188576
[2017-06-12 16:25] LABS: HEMATOCRIT 38.4 % (38.0-50.0); MCH 26.8 PG (29.0-34.0); MCHC 33.6 G/DL (30.0-36.0); MCV 79.7 FL (86-99); RBC DIS.WIDTH-CV 13.2 % (11.8-14.6); RBC DIS.WIDTH-SD 38.4 % (39-53); RED BLOOD COUNT 4.82 M/uL (4.00-5.50); WHITE BLOOD COUNT 12.5 K/uL (4.1-10.2)
[2017-06-12 16:30] LABS: MEAN PLAT.VOLUME 11.7 uM^3 (9.0-12.4); PLATELET COUNT 344 K/uL (156-360)
[2017-06-12 18:44] LABS: ADD MIUA? YES; BILIRUBIN NEGATIVE; BLOOD LARGE; COLOR YELLOW ((YELLOW)); GLUCOSE (STRIP) NEGATIVE; KETONES NEGATIVE; LEUKOCYTES MODERATE; NITRITE NEGATIVE; PROTEIN (STRIP) NEGATIVE; SPECIFIC GRAVITY 1.014 (1.000-1.030); UROBILINOGEN 0.2 MG/DL (0.2-1.0)
[2017-06-12 18:59] LABS: EPITHELIAL CELLS RARE /HPF; HYALINE CASTS 0-5 /LPF; MUCUS 2+ /LPF; RED BLOOD CELLS TNTC /HPF (0-5); UCUL ADDED? YES; WHITE BLOOD CELLS 20-30 /HPF (0-5); WHITE BLOOD CELLS CLUMP RARE /HPF (0-5)
[2017-06-12 19:14] LABS: BACTERIA RARE /HPF
== END 2017-06-12 16:14 | DRG 885 ==
LOC: ENRESERV 15:35 → 1WEST 15:35 → CANRESERV 15:35 → ENRESERV 15:39 → 1WEST 16:37
PROVIDERS: Hospitalist; Psychiatry & Neurology Psychiatry
DX: F29 Unspecified psychosis not due to a substance or known physiological condition (principal); I10 Essential (primary) hypertension; R56.9 Unspecified convulsions; G83.84 Todd's paralysis (postepileptic)
CPT/HCPCS: 70450; 80053; 81003; 82948; 83605; 84484; 85027; 87086; 99202; J2060

== ENCOUNTER 2017-06-12 16:15 | Inpatient (IN) | payer OTHER ==
[~2017-06-12] VITALS: Ht 182.9 cm; Wt 117.9 kg
[~2017-06-12 16:15] MED LIST changes: +EFFEXOR XR37.5 MG PO; +FLUPHENAZINE HCL1 MG PO
[2017-06-12 17:25] VITALS: BP 138/85
[2017-06-12 23:47] VITALS: BP 165/85
[2017-06-13 00:49] LABS: ADD MIUA? YES; BILIRUBIN NEGATIVE; BLOOD MODERATE; COLOR YELLOW ((YELLOW)); GLUCOSE (STRIP) NEGATIVE; KETONES NEGATIVE; LEUKOCYTES LARGE; NITRITE NEGATIVE; PROTEIN (STRIP) NEGATIVE; SPECIFIC GRAVITY 1.015 (1.000-1.030); UROBILINOGEN 0.2 MG/DL (0.2-1.0)
[2017-06-13 00:53] LABS: UCUL ADDED? NO
[2017-06-13 01:18] LABS: AMORPHOUS PHOSPHATE CRYSTALS 3+; CRYSTALS PRESENT
[2017-06-13 01:19] LABS: BACTERIA 1+ /HPF; EPITHELIAL CELLS 1+ /HPF; MUCUS NONE SEEN /LPF; WHITE BLOOD CELLS TNTC /HPF (0-5)
[2017-06-13 01:20] LABS: CASTS NONE SEEN /LPF
[2017-06-13 04:11] VITALS: BP 127/68
[2017-06-13 06:13] LABS: HEMATOCRIT 36.5 % (38.0-50.0); MCH 27.9 PG (29.0-34.0); MCHC 34.8 G/DL (30.0-36.0); MCV 80.2 FL (86-99); PLATELET COUNT 317 K/uL (156-360); RBC DIS.WIDTH-CV 13.2 % (11.8-14.6); RBC DIS.WIDTH-SD 38.1 % (39-53); RED BLOOD COUNT 4.55 M/uL (4.00-5.50); WHITE BLOOD COUNT 15.8 K/uL (4.1-10.2)
[2017-06-13 06:36] LABS: ANION GAP 10 MEQ/L (2-14); CHLORIDE 102 MEQ/L (99-109); GLUCOSE 114 mg/dL (70-99); SAMPLE HEMOLYSIS CHECK 0; SAMPLE ICTERIC CHECK 0; SAMPLE LIPEMIA CHECK 0; SODIUM 138 MEQ/L (136-147); UREA NITROGEN (BUN) 6 mg/dL (9-23)
[2017-06-13 06:39] LABS: GFR ESTIMATE (CALCULATED) > 59 mL/min/
[2017-06-13 07:32] VITALS: BP 141/75
[2017-06-13 11:12] VITALS: BP 153/90
[2017-06-13 13:06] LABS: ALKALINE PHOSPHATASE 63 IU/L (3-129); DIRECT BILIRUBIN 0.3 mg/dL (0.0-0.3)
[2017-06-13 15:04] VITALS: BP 169/93
[2017-06-14 00:07] VITALS: BP 155/78
[2017-06-14 07:17] LABS: HEMATOCRIT 35.8 % (38.0-50.0); MCH 27.3 PG (29.0-34.0); MCHC 33.8 G/DL (30.0-36.0); MCV 80.8 FL (86-99); MEAN PLAT.VOLUME 11.9 uM^3 (9.0-12.4); PLATELET COUNT 293 K/uL (156-360); RBC DIS.WIDTH-CV 13.3 % (11.8-14.6); RBC DIS.WIDTH-SD 39.1 % (39-53); RED BLOOD COUNT 4.43 M/uL (4.00-5.50); WHITE BLOOD COUNT 10.3 K/uL (4.1-10.2)
[2017-06-14 07:25] VITALS: BP 140/73
[2017-06-14 07:39] LABS: ANION GAP 8 MEQ/L (2-14); CHLORIDE 103 MEQ/L (99-109); GFR ESTIMATE (CALCULATED) > 59 mL/min/; GLUCOSE 97 mg/dL (70-99); POTASSIUM 4.1 MEQ/L (3.7-5.4); SAMPLE HEMOLYSIS CHECK 0; SAMPLE ICTERIC CHECK 0; SAMPLE LIPEMIA CHECK 0; SODIUM 137 MEQ/L (136-147); UREA NITROGEN (BUN) 6 mg/dL (9-23)
[2017-06-14 16:16] VITALS: BP 140/95
[2017-06-15 06:34] LABS: HEMATOCRIT 37.7 % (38.0-50.0); MCH 26.6 PG (29.0-34.0); MCHC 33.4 G/DL (30.0-36.0); MCV 79.7 FL (86-99); MEAN PLAT.VOLUME 11.5 uM^3 (9.0-12.4); PLATELET COUNT 293 K/uL (156-360); RBC DIS.WIDTH-CV 12.9 % (11.8-14.6); RBC DIS.WIDTH-SD 37.2 % (39-53); RED BLOOD COUNT 4.73 M/uL (4.00-5.50); WHITE BLOOD COUNT 11.6 K/uL (4.1-10.2)
[2017-06-15 07:02] LABS: ANION GAP 8 MEQ/L (2-14); CHLORIDE 102 MEQ/L (99-109); GFR ESTIMATE (CALCULATED) > 59 mL/min/; GLUCOSE 103 mg/dL (70-99); SAMPLE HEMOLYSIS CHECK 0; SAMPLE ICTERIC CHECK 0; SAMPLE LIPEMIA CHECK 0; SODIUM 137 MEQ/L (136-147); UREA NITROGEN (BUN) 5 mg/dL (9-23)
[2017-06-15 07:30] VITALS: BP 136/79
[2017-06-15 16:17] VITALS: BP 136/88
[2017-06-15 23:39] VITALS: BP 140/85
== END 2017-06-16 00:34 | disposition short-term general hospital (02) | DRG 100 ==
LOC: 5SOUTH 16:15 → ENRESERV 16:16 → 5SOUTH 16:33
PROVIDERS: Hospitalist; Internal Medicine
DX: R56.9 Unspecified convulsions (principal); T43.295A Adverse effect of other antidepressants, initial encounter; N17.9 Acute kidney failure, unspecified; E87.2 Acidosis; G93.40 Encephalopathy, unspecified; F31.9 Bipolar disorder, unspecified; F17.210 Nicotine dependence, cigarettes, uncomplicated; I10 Essential (primary) hypertension; G35 Multiple sclerosis; H46.8 Other optic neuritis; H54.61 Unqualified visual loss, right eye, normal vision left eye; K76.0 Fatty (change of) liver, not elsewhere classified; K80.20 Calculus of gallbladder without cholecystitis without obstruction; F29 Unspecified psychosis not due to a substance or known physiological condition; Z88.1 Allergy status to other antibiotic agents
CPT/HCPCS: 70553; 71010; 80048; 80076; 81003; 81015; 82140; 82390; 82525 90; 83605; 85027; 87040; 87086; 93005; 95819; 99202; J0696; J1650; J7042; J7050

== ENCOUNTER 2017-07-01 07:36 | Emergency (ER) | payer OTHER ==
[~2017-07-01] VITALS: Ht 185.4 cm; Wt 114.4 kg
[2017-07-01 09:24] LABS: BASOPHIL COUNT 0.1 K/uL (0-0.1); EOSINOPHIL (%) 0.2 % (0-5); HEMATOCRIT 36.3 % (38.0-50.0); IMMATURE GRANULOCYTE (%) 0.6 % (0.0-0.7); IMMATURE GRANULOCYTE COUNT 0.1 K/uL; INSTRUMENT ABS NEUTROPHIL CT 9.8 K/uL; LYMPHOCYTE COUNT 1.2 K/uL (1.0-2.8); MCH 27.3 PG (29.0-34.0); MCHC 34.7 G/DL (30.0-36.0); MCV 78.6 FL (86-99); MEAN PLAT.VOLUME 11.4 uM^3 (9.0-12.4); MONOCYTE (%) 6.2 % (3-12); MONOCYTE COUNT 0.7 K/uL (0-0.8); NEUTROPHIL (%) 82.8 % (45-76); NEUTROPHIL COUNT 9.8 K/uL (1.8-6.4); PLATELET COUNT 349 K/uL (156-360); RBC DIS.WIDTH-SD 39.9 % (39-53); RED BLOOD COUNT 4.62 M/uL (4.00-5.50); WHITE BLOOD COUNT 11.8 K/uL (4.1-10.2)
[2017-07-01 09:34] LABS: CHLORIDE 100 mEq/L (99-109); POTASSIUM 3.4 mEq/L (3.7-5.4); SODIUM 138 mEq/L (136-147)
[2017-07-01 09:35] LABS: GLUCOSE 118 mg/dL (70-99)
[2017-07-01 09:37] LABS: ANION GAP 12 MEQ/L (2-14)
[2017-07-01 09:39] LABS: GFR ESTIMATE (CALCULATED) > 59 mL/min/
[2017-07-01 09:40] LABS: UREA NITROGEN (BUN) 5 mg/dL (9-23)
[2017-07-01 10:02] LABS: ADD MIUA? YES; BILIRUBIN NEGATIVE; BLOOD NEGATIVE; COLOR YELLOW ((YELLOW)); GLUCOSE (STRIP) NEGATIVE; KETONES NEGATIVE; LEUKOCYTES NEGATIVE; NITRITE NEGATIVE; PROTEIN (STRIP) 30; SPECIFIC GRAVITY 1.015 (1.000-1.030); UROBILINOGEN 0.2 MG/DL (0.2-1.0)
[2017-07-01 10:16] LABS: RED BLOOD CELLS 0-5 /HPF (0-5); WHITE BLOOD CELLS 0-5 /HPF (0-5)
[2017-07-01 10:17] LABS: AMORPHOUS URATES CRYSTALS FEW; BACTERIA 1+ /HPF; CASTS PRESENT /LPF; CRYSTALS PRESENT; EPITHELIAL CELLS NONE SEEN /HPF; HYALINE CASTS 0-5 /LPF; MUCUS TRACE /LPF; UCUL ADDED? NO
[2017-07-01 11:06] VITALS: BP 132/79
[2017-07-03 12:24] LABS: CHLAMYDIA TRACHOMATIS NEGATIVE; NEISSERIA GONORRHOEAE NEGATIVE
== END 2017-07-01 11:15 | disposition home or self-care (01) ==
LOC: EME 07:36
PROVIDERS: Emergency Medicine
PROC: 0T9B70Z Drainage of Bladder with Drainage Device, Via Natural or Artificial Opening (ICD-10-PCS; principal; 2017-07-01)
DX: R33.9 Retention of urine, unspecified (principal); I10 Essential (primary) hypertension; F32.9 Major depressive disorder, single episode, unspecified; Z87.440 Personal history of urinary (tract) infections
CPT/HCPCS: 80048; 81003; 85025; 87491; 87591; 99281; 99285